=== PATIENT | female | born 1970 | race Caucasian/White ===

== ENCOUNTER 2022-05-18 06:46 | Day surgery (SDC) | payer OTHER ==
[~2022-05-18 06:46] MED LIST: Lactated Ringers 1,000 ML IV SCH; Lidocaine 1%/Sod Bicarbonate in NS 8.4% 1 ML Syringe IDERM PRN; Sodium Chloride 0.9% 10 ML Syringe FLUSH PRN; Sodium Chloride 0.9% 10 ML Syringe FLUSH SCH
[2022-05-18] MEDS ORDERED: fentaNYL 100 MCG/2 ML SDV ONE (07:17)
[2022-05-18] MEDS ORDERED: Propofol 200 MG/20 ML SDV ONE ×2 (07:17→08:10)
[2022-05-18] MEDS ORDERED: Lidocaine 1% 4 ML ONE (07:17)
[2022-05-18] MEDS ORDERED: Lactated Ringers 1,000 ML ONE (08:48)
[2022-05-18] MEDS ORDERED: Ropivacaine 0.5% 5 MG/ML 30 ML SDV ONE (09:00)
== END 2022-05-18 09:50 | disposition home or self-care (01) ==
LOC: JD.SDS 06:46
PROVIDERS: ATTEND Surgery
DX: Z12.11 Encounter for screening for malignant neoplasm of colon (principal); D12.4 Benign neoplasm of descending colon; D12.5 Benign neoplasm of sigmoid colon; G43.909 Migraine, unspecified, not intractable, without status migrainosus; Z79.899 Other long term (current) drug therapy
CPT/HCPCS: 45385; J2704; J2795; J3010; J7120; 00812